=== PATIENT | female | born 1990 | race American Indian/Alaskan Native ===

== ENCOUNTER 2016-11-12 19:35 | Emergency (ER) | payer SELFPAY ==
[2016-11-12 19:53] VITALS: BP 125/86
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
== END 2016-11-13 01:21 | disposition left against medical advice (07) ==
LOC: ED 19:35
DX: Z53.21 Procedure and treatment not carried out due to patient leaving prior to being seen by health care provider (principal)
CPT/HCPCS: 36415; 76801; 76817; 84702